=== PATIENT | female | born 2005 | race African-American/Black ===

== ENCOUNTER 2025-05-01 07:17 | Observation (INO) ==
--- NOTE | 2025-05-01 07:32 | Emergency Department Note ---
Impression & Plan Vaginal bleeding in , Anemia, Threatened in second trimester ED Provider Note CHIEF COMPLAINT: Vaginal bleeding in HISTORY OF PRESENTING ILLNESS: This (previous ) 20-year-old female patient who is approximately 18 weeks presents to the emergency department with her boyfriend for evaluation of mild abdominal cramping and vaginal bleeding. The symptoms started this morning. She denies any blood clots. The patient states that she still feels movement. The patient denies any fevers. She denies any chest pain or shortness of breath. She denies any nausea or vomiting. She follows up with [facility]. The patient was seen in the ER on 04/27/2025 for left-sided abdominal pain that radiated to her left mid back. The patient was started on Keflex for asymptomatic bacteriuria. Renal ultrasound showed a normal left kidney. Some prominence of the right renal collecting system and right ureteral jet not identified concerning for potential presence of a stone. However, the patient was not having any right sided pain. OB ultrasound showed a solitary intrauterine gestation with cardiac activity at 150 bpm. The abdominal pain resolved after starting the Keflex. She denies any urinary symptoms currently. REVIEW OF SYSTEMS: See HPI for pertinent positives and pertinent negatives. ALLERGIES: Latex MEDICATIONS: vitamin PAST MEDICAL HISTORY: Denies pertinent past medical or pertinent past surgical history PHYSICAL EXAM: VITALS: Vitals are noted on the nurse's note and reviewed by myself. GENERAL: Non toxic, in no acute distress, non-diaphoretic. SKIN: Capillary refill <2 sec. EYES: PERRLA. EOMI. Conjunctivae without injection, sclerae without icterus. NOSE: Patent without discharge. MOUTH: Mucous membranes moist. Uvula midline. Airway patent. NECK: Supple without nuchal rigidity. HEART: Regular rate and rhythm without murmurs gallops or rubs. LUNGS: Clear to auscultation bilaterally without wheezes, rales or rhonchi. No retractions or accessory muscle use. ABDOMEN: Positive bowel sounds x 4. Normal tympanic percussion. Soft, mild tenderness to palpation in the suprapubic area. No masses or hepatosplenomegaly. Ferrell sign negative. No CVA tenderness. No guarding, rigidity, or rebound tenderness. No focal RLQ or LLQ tenderness. PELVIC EXAM: Permission to perform the exam. Funeral Planner in the room for the exam. External genitalia normal. Vaginal canal with a copious amount of bright red blood initially. After this was soaked up with large Q-tips, there was no additional active bleeding. There were no blood clots. Cervical os might have slight dilation, but no significant dilation. Cervix without lesions. Bimanual exam deferred due to . NEURO: Patient was alert and oriented. No focal neurological deficits. DIFFERENTIAL DIAGNOSIS: Differential diagnosis includes miscarriage, threatened , ectopic , subchorionic hematoma, placenta previa, coagulopathy, hormonal imbalance, or others. ED COURSE AND MEDICAL DECISION MAKING: MEDICATIONS GIVEN: 1 L NSS bolus MONITOR: Continuous pickler helper: Order was placed for continuous pickler helper. Patient was placed on the pickler helper and continuous pulse ox. Patient was noted to be in normal sinus rhythm at an initial rate of 80 bpm per my interpretation. INTERPRETATION OF LABS: I interpreted the labs with full lab results as below in the lab section of this note. Laboratory results pertinent to the emergent complaint are discussed in the MDM section below. The patient was advised to follow up with their PCP and/or specialist(s) for further outpatient monitoring and management of any abnormal results. INTERPRETATION OF IMAGING: Imaging studies were interpreted by myself and read by radiology as per the imaging section of this note. The patient was advised to follow up with their PCP and/or specialist(s) for further outpatient management of any non-emergent abnormal findings. Obstetric ultrasound showed a single viable intrauterine gestation. heart rate normal at 129 bpm. The amount of amniotic fluid is within normal limits. There is normal movement. No placental abnormality identified. The cervix was not well assessed. No adnexal abnormality identified. No free fluid noted. CONSULTATIONS: Dr. Rodarte of [facility] MDM SUMMARY: I examined the patient. The patient is approximately 18 weeks . She started with vaginal bleeding and mild abdominal cramping this morning and she became concerned. She states that she is still feeling movement. heart tones by nursing staff were 153 at the time of arrival. Pelvic exam at the time of arrival showed a large amount of bright red blood in the vaginal canal, but after this was soaked up with Q-tips, no additional significant vaginal bleeding. No blood clots were present. There may be slight dilation of the cervix, but no significant openness of the cervix. The patient had also been seen in the ER 04/27/2025 with workup as above. An IV lock was placed and labs were drawn. The patient was given 1 L normal saline solution bolus. She declined any medication for pain or other symptoms while in the ER. White blood cell count normal at 8.65. The patient's hemoglobin is low at 11.4, but improved from 10.8 on 04/27/2025. Platelet count normal at 267. Coags normal. Glucose 101, but CMP otherwise normal. Magnesium normal. Urinalysis with 2+ protein and 1+ blood, but no evidence for UTI. Obstetric ultrasound showed a single viable intrauterine gestation. heart rate normal at 129 bpm. The amount of amniotic fluid is within normal limits. There is normal movement. No placental abnormality identified. The cervix was not well assessed. No adnexal abnormality identified. No free fluid noted. I spoke with Dr. Rodarte of [facility]. Dr. Rodarte stated that if the patient's bleeding stopped, the patient could be discharged home and follow-up with [facility] tomorrow for further outpatient management. However, it would be More concerning if the patient's bleeding continued. Her hemoglobin was stable and somewhat improved from her previous labs from 04/27/2025. The patient continued to have episodes of vaginal bleeding while in the emergency department. Some of the episodes were gushes of blood and some more more similar to period type bleeding. No clots were passed. No change in the patient's abdominal discomfort. She stated it was more like a crampy pain like she typically gets with her periods. I had a meaningful discussion about this patient with Dr. Monge who agrees with my assessment and the treatment plan. Since the patient was still bleeding, a repeat CBC was performed approximately 3 hours from the first. The patient's hemoglobin dropped from 11.4 down to 9.4. The patient was having continued bleeding and there is concern for possible worsening anemia if she continued bleeding. Therefore, I contacted Dr. Rodarte again who agreed to admit the patient for further monitoring of her bleeding and anemia. Please refer to his dictation for further details. The patient's care was transferred in stable condition. DIAGNOSIS: Vaginal bleeding in - threatened Anemia Past Med/Surg History Problem List (Updated 05/01/25 @ 15:37 by Eva Carney PA-C) Threatened in second trimester (Acute) Anemia (Acute) Vaginal bleeding in (Acute) Asymptomatic bacteriuria (Acute) Nausea & vomiting (Acute) Acute abdominal pain in left flank (Acute) No significant past surgical history No chronic diseases present Medical History No chronic diseases present Surgical History No significant past surgical history Social History Smoking Status: Never smoker Tobacco Type: E-cigarettes / Vaping Preferred Language: [place]i Feels Safe at Home: Yes Allergies Allergies Allergy/AdvReac Type Severity Reaction Status Date / Time latex Allergy Unknown Unverified 05/01/25 10:46 Home Meds Home Medications Medication Instructions Recorded Confirmed ferrous sulfate 324 mg (65 mg 324 mg PO DAILY 05/01/25 05/01/25 iron) tablet,delayed release vit no.95-ferrous 1 tab PO DAILY 05/01/25 05/01/25 fumarate 28 mg-folic acid 800 mcg tablet () Previous Rx's Medication Instructions Recorded cephalexin 500 mg capsule 500 mg PO TID 7 days #21 caps 04/27/25 Results & Data (ED) Vital Signs Vital Signs - 24 hr 05/01/25 07:18 05/01/25 07:18 05/01/25 08:00 Temperature 36.6 C Temperature Source Temporal Artery Scan Pulse Rate 90 85 Pulse Rate [Apical] Pulse Rate from SpO2 Sensor Pulse Rhythm Regular Respiratory Rate 18 16 18 Respiratory Effort / Characteristics Respiratory Depth Respiratory Pattern Blood Pressure 114/72 Blood Pressure [Right Arm] Blood Pressure Mean 86 Blood Pressure Mean [Right Arm] Blood Pressure Position [Right Arm] Pulse Oximetry 99 95 Oxygen Delivery Method Room Air Sepsis Recent Fever Within 48 Hours No Sepsis New/Unexplained Change in Mental Status N/A Sepsis Action Taken by Nursing No Action Required 05/01/25 08:00 05/01/25 08:05 05/01/25 08:05 Temperature Temperature Source Pulse Rate Pulse Rate [Apical] 85 Pulse Rate from SpO2 Sensor Pulse Rhythm Respiratory Rate 18 Respiratory Effort / Characteristics Non-Labored Spontaneous Respiratory Depth Normal Respiratory Pattern Regular Blood Pressure 102/72 102/72 Blood Pressure [Right Arm] 102/72 Blood Pressure Mean 79 79 Blood Pressure Mean [Right Arm] 82 Blood Pressure Position [Right Arm] Sitting Pulse Oximetry 95 Oxygen Delivery Method Room Air Sepsis Recent Fever Within 48 Hours Sepsis New/Unexplained Change in Mental Status Sepsis Action Taken by Nursing 05/01/25 08:36 05/01/25 08:39 05/01/25 08:42 Temperature Temperature Source Pulse Rate 82 81 80 Pulse Rate [Apical] Pulse Rate from SpO2 Sensor 81 80 Pulse Rhythm Respiratory Rate 22 21 Respiratory Effort / Characteristics Respiratory Depth Respiratory Pattern Blood Pressure Blood Pressure [Right Arm] Blood Pressure Mean Blood Pressure Mean [Right Arm] Blood Pressure Position [Right Arm] Pulse Oximetry 97 95 Oxygen Delivery Method Sepsis Recent Fever Within 48 Hours Sepsis New/Unexplained Change in Mental Status Sepsis Action Taken by Nursing 05/01/25 08:57 05/01/25 09:00 05/01/25 09:00 Temperature Temperature Source Pulse Rate 83 Pulse Rate [Apical] Pulse Rate from SpO2 Sensor 83 Pulse Rhythm Respiratory Rate 22 Respiratory Effort / Characteristics Respiratory Depth Respiratory Pattern Blood Pressure 102/68 102/68 Blood Pressure [Right Arm] Blood Pressure Mean 79 79 Blood Pressure Mean [Right Arm] Blood Pressure Position [Right Arm] Pulse Oximetry 100 Oxygen Delivery Method Sepsis Recent Fever Within 48 Hours Sepsis New/Unexplained Change in Mental Status Sepsis Action Taken by Nursing 05/01/25 09:00 05/01/25 09:00 05/01/25 09:00 Temperature Temperature Source Pulse Rate Pulse Rate [Apical] Pulse Rate from SpO2 Sensor Pulse Rhythm Respiratory Rate Respiratory Effort / Characteristics Respiratory Depth Respiratory Pattern Blood Pressure 102/68 102/68 102/68 Blood Pressure [Right Arm] Blood Pressure Mean 79 79 79 Blood Pressure Mean [Right Arm] Blood Pressure Position [Right Arm] Pulse Oximetry Oxygen Delivery Method Sepsis Recent Fever Within 48 Hours Sepsis New/Unexplained Change in Mental Status Sepsis Action Taken by Nursing 05/01/25 09:00 05/01/25 09:15 05/01/25 09:30 Temperature Temperature Source Pulse Rate 79 75 Pulse Rate [Apical] Pulse Rate from SpO2 Sensor 79 79 Pulse Rhythm Respiratory Rate 18 16 Respiratory Effort / Characteristics Respiratory Depth Respiratory Pattern Blood Pressure 113/75 Blood Pressure [Right Arm] Blood Pressure Mean 87 Blood Pressure Mean [Right Arm] Blood Pressure Position [Right Arm] Pulse Oximetry 98 100 Oxygen Delivery Method Sepsis Recent Fever Within 48 Hours Sepsis New/Unexplained Change in Mental Status Sepsis Action Taken by Nursing 05/01/25 09:30 05/01/25 09:30 05/01/25 09:45 Temperature Temperature Source Pulse Rate 77 89 Pulse Rate [Apical] Pulse Rate from SpO2 Sensor 77 Pulse Rhythm Respiratory Rate 20 20 Respiratory Effort / Characteristics Respiratory Depth Respiratory Pattern Blood Pressure 113/75 Blood Pressure [Right Arm] Blood Pressure Mean 87 Blood Pressure Mean [Right Arm] Blood Pressure Position [Right Arm] Pulse Oximetry 97 Oxygen Delivery Method Sepsis Recent Fever Within 48 Hours Sepsis New/Unexplained Change in Mental Status Sepsis Action Taken by Nursing 05/01/25 09:57 05/01/25 10:00 05/01/25 10:00 Temperature Temperature Source Pulse Rate 83 Pulse Rate [Apical] Pulse Rate from SpO2 Sensor Pulse Rhythm Respiratory Rate 18 Respiratory Effort / Characteristics Respiratory Depth Respiratory Pattern Blood Pressure 102/61 102/61 Blood Pressure [Right Arm] Blood Pressure Mean 76 76 Blood Pressure Mean [Right Arm] Blood Pressure Position [Right Arm] Pulse Oximetry Oxygen Delivery Method Sepsis Recent Fever Within 48 Hours Sepsis New/Unexplained Change in Mental Status Sepsis Action Taken by Nursing 05/01/25 10:00 05/01/25 10:03 05/01/25 10:15 Temperature Temperature Source Pulse Rate 81 79 Pulse Rate [Apical] Pulse Rate from SpO2 Sensor Pulse Rhythm Respiratory Rate 21 20 Respiratory Effort / Characteristics Respiratory Depth Respiratory Pattern Blood Pressure 102/61 Blood Pressure [Right Arm] Blood Pressure Mean 76 Blood Pressure Mean [Right Arm] Blood Pressure Position [Right Arm] Pulse Oximetry Oxygen Delivery Method Sepsis Recent Fever Within 48 Hours Sepsis New/Unexplained Change in Mental Status Sepsis Action Taken by Nursing 05/01/25 10:21 05/01/25 12:38 Temperature Temperature Source Pulse Rate 86 Pulse Rate [Apical] 65 Pulse Rate from SpO2 Sensor Pulse Rhythm Respiratory Rate 18 16 Respiratory Effort / Characteristics Respiratory Depth Respiratory Pattern Blood Pressure Blood Pressure [Right Arm] 120/64 Blood Pressure Mean Blood Pressure Mean [Right Arm] 82 Blood Pressure Position [Right Arm] Pulse Oximetry 95 Oxygen Delivery Method Room Air Sepsis Recent Fever Within 48 Hours Sepsis New/Unexplained Change in Mental Status Sepsis Action Taken by Nursing Laboratory Data 05/01/25 11:07 05/01/25 08:06 Lab Results 05/01/25 05/01/25 05/01/25 Range/Units 07:56 08:00 08:06 WBC 8.65 (4.8-10.8) K/ul RBC 4.08 L (4.20-5.40) M/uL Hgb 11.4 L (12.0-16.0) g/dl Hct 34.4 L (37.0-47.0) % MCV 84.3 (80.0-100.0) fL MCH 27.9 (25.0-34.0) pg MCHC 33.1 (32.0-36.0) g/dL RDW Std Deviation 40.2 (36.4-46.3) fL RDW Coeff of Danika 13.2 (11.5-14.5) % Plt Count 267 (130-400) K/uL MPV 10.4 (9.4-12.4) fL Immature Gran % (Auto) 0.3 % Neut % (Auto) 68.5 % Lymph % (Auto) 24.7 % [place] % (Auto) 4.5 % Eos % (Auto) 1.2 % Baso % (Auto) 0.8 % Neut # (Auto) 5.92 (1.40-6.50) K/uL Lymph # (Auto) 2.14 (1.20-3.40) K/uL [place] # (Auto) 0.39 (0.11-0.59) K/uL Eos # (Auto) 0.10 (0.00-0.50) K/uL Baso # (Auto) 0.07 (0.00-0.20) K/uL Immature Gran # (Auto) 0.03 (0.01-0.20) K/uL PT 10.1 (9.0-12.0) Seconds INR 1.0 (0.9-1.1) APTT 25 (21-31) Seconds PTT Ratio 0.9 Sodium 137 (136-145) mmol/L Potassium 3.8 (3.5-5.1) mmol/L Chloride 104 (98-107) mmol/L Carbon Dioxide 24 (21-32) mmol/L Anion Gap 9 (3-11) BUN 13 (6-23) mg/dl Creatinine 0.63 (0.6-1.2) mg/dl Est Cr Clr Drug Dosing Not Reportable eGFR 128.55 BUN/Creatinine Ratio 20.6 H (10-20) Glucose 101 H (70-99(Fasting)) mg/dl Calcium 9.2 (8.6-10.3) mg/dl Magnesium 1.8 (1.7-2.4) mg/dl Total Bilirubin 0.6 (0.2-1.0) mg/dl AST 16 (13-39) U/L ALT 11 (7-52) U/L Alkaline Phosphatase 37 (34-104) U/L Total Protein 7.4 (6.0-8.3) gm/dl Albumin 4.3 (3.4-5.0) gm/dl Globulin 3.1 (2.5-4.0) gm/dl Albumin/Globulin Ratio 1.4 (0.9-2) Urine Color Yellow Urine Appearance Clear (Clear) Urine pH 6.0 (4.5-7.5) Ur Specific [place] 1.019 (1.000-1.030) Urine Protein 2+ H (Negative) Urine Glucose (UA) Negative (Negative) Urine Ketones Negative (Negative) Urine Blood 1+ H (Negative) Urine Nitrite Negative (Negative) Urine Bilirubin Negative (Negative) Urine Urobilinogen Negative (Negative) Ur Leukocyte Esterase Negative (Negative) Urine WBC (Auto) 0-5 (0-5) /hpf Urine RBC (Auto) 6-10 H (0-2) /hpf U Hyaline Cast (Auto) 0-2 (0-2) /lpf U Epithel Cells (Auto) 0-2 (0-2) /hpf Urine Bacteria (Auto) None Seen (None Seen) Urine Comment Blood Type A Positive Antibody Screen NEGATIVE 05/01/25 Range/Units 11:07 WBC 9.96 (4.8-10.8) K/ul RBC 3.42 L (4.20-5.40) M/uL Hgb 9.4 L (12.0-16.0) g/dl Hct 28.7 L (37.0-47.0) % MCV 83.9 (80.0-100.0) fL MCH 27.5 (25.0-34.0) pg MCHC 32.8 (32.0-36.0) g/dL RDW Std Deviation 40.1 (36.4-46.3) fL RDW Coeff of Danika 13.2 (11.5-14.5) % Plt Count 168 (130-400) K/uL MPV 10.7 (9.4-12.4) fL Immature Gran % (Auto) % Neut % (Auto) % Lymph % (Auto) % [place] % (Auto) % Eos % (Auto) % Baso % (Auto) % Neut # (Auto) (1.40-6.50) K/uL Lymph # (Auto) (1.20-3.40) K/uL [place] # (Auto) (0.11-0.59) K/uL Eos # (Auto) (0.00-0.50) K/uL Baso # (Auto) (0.00-0.20) K/uL Immature Gran # (Auto) (0.01-0.20) K/uL PT (9.0-12.0) Seconds INR (0.9-1.1) APTT (21-31) Seconds PTT Ratio Sodium (136-145) mmol/L Potassium (3.5-5.1) mmol/L Chloride (98-107) mmol/L Carbon Dioxide (21-32) mmol/L Anion Gap (3-11) BUN (6-23) mg/dl Creatinine (0.6-1.2) mg/dl Est Cr Clr Drug Dosing eGFR BUN/Creatinine Ratio (10-20) Glucose (70-99(Fasting)) mg/dl Calcium (8.6-10.3) mg/dl Magnesium (1.7-2.4) mg/dl Total Bilirubin (0.2-1.0) mg/dl AST (13-39) U/L ALT (7-52) U/L Alkaline Phosphatase (34-104) U/L Total Protein (6.0-8.3) gm/dl Albumin (3.4-5.0) gm/dl Globulin (2.5-4.0) gm/dl Albumin/Globulin Ratio (0.9-2) Urine Color Urine Appearance (Clear) Urine pH (4.5-7.5) Ur Specific [place] (1.000-1.030) Urine Protein (Negative) Urine Glucose (UA) (Negative) Urine Ketones (Negative) Urine Blood (Negative) Urine Nitrite (Negative) Urine Bilirubin (Negative) Urine Urobilinogen (Negative) Ur Leukocyte Esterase (Negative) Urine WBC (Auto) (0-5) /hpf Urine RBC (Auto) (0-2) /hpf U Hyaline Cast (Auto) (0-2) /lpf U Epithel Cells (Auto) (0-2) /hpf Urine Bacteria (Auto) (None Seen) Urine Comment Blood Type Antibody Screen Administered Medications Discontinued Medications Sodium Chloride (Nss) 1,000 mls @ 999 mls/hr IV .[id number] ONE Stop: 05/01/25 08:44 Last Infusion: 05/01/25 09:40 Dose: Infused Documented By: Admin: 05/01/25 08:33 Dose: 999 mls/hr Documented By: ML Imaging Data Radiologist's Impression: Obstetrics Ultrasound 05/01/25 07:44 US OB limited CLINICAL HISTORY: 18 weeks preg, vaginal bleed, pelv cramp COMPARISON STUDY: OB ultrasound April 27, 2025. TECHNIQUE: Transabdominal sonography of the pelvis was performed. FINDINGS: Single viable intrauterine gestation is noted. heart rate is normal, measuring 129 bpm. Please note that a dedicated anatomical survey was not performed. Subjectively, the amount of amniotic fluid is within normal limits. There is normal movement. No placental abnormality was identified. The cervix was not well assessed on this exam. No adnexal abnormality was identified. Specifically, no free fluid was noted. IMPRESSION: 1. Single viable intrauterine gestation. 2. Normal heart rate. 3. No placental abnormality. 4. Cervix not well assessed on this exam. ACT 112: Negative or not required by law. Electronically signed by: Roberto Rodríguez M.D. 05/01/2025 8:44 AM Discharge Plan Visit Data Chief Complaint: Vaginal Discharge Stated Complaint: GUSH OF FLUID,PINK,MINOR CRAMPING ED Provider: Aniceto Monge ED Midlevel Provider: Eva Carney Discharge Problem: Vaginal bleeding in , Anemia, Threatened in second trimester Patient Disposition: Admitted As Inpatient Condition: Fair Discharge Instructions Interventions: ED Discharge Assessment Last Done: 05/01/25 14:24 Discharge Problem: Anemia Qualifiers: Anemia type: other cause
[2025-05-01 08:30] LABS: Hematocrit (blood only) 34.4 % (37.0-47.0); Hemoglobin 11.4 g/dl (12.0-16.0); Immature Granulocytes # (auto) 0.03 K/uL (0.01-0.20); Immature Granulocytes % (auto) 0.3 %; Mean Corpuscular Hemoglobin 27.9 pg (25.0-34.0); Mean Corpuscular Volume 84.3 fL (80.0-100.0); Platelet Count 267 K/uL (130-400); RDW Standard Deviation 40.2 fL (36.4-46.3); Red Blood Count 4.08 M/uL (4.20-5.40); White Blood Count 8.65 K/ul (4.8-10.8)
[2025-05-01] MEDS: SODIUM CHLORIDE 0.9% 1,000 ML IV ONE (08:33)
[2025-05-01 08:43] LABS: Appearance Urine Clear (Clear); Bacteria Urine Automated None Seen (None Seen); Cast Urine Automated 0-2 /lpf (0-2); Epithelial Cell Urine Auto 0-2 /hpf (0-2); Glucose Urine UA Negative (Negative); WBC Urine Automated 0-5 /hpf (0-5)
--- NOTE | 2025-05-01 08:45 | Ultrasound Report ---
US OB limited CLINICAL HISTORY: 18 weeks preg, vaginal bleed, pelv cramp COMPARISON STUDY: OB ultrasound April 27, 2025. TECHNIQUE: Transabdominal sonography of the pelvis was performed. FINDINGS: Single viable intrauterine gestation is noted. heart rate is normal, measuring 129 bp m. Please note that a dedicated anatomical survey was not performed. Subjectively, the amount o f amniotic fluid is within normal limits. There is normal movement. No placental abnormality wa s identified. The cervix was not well assessed on this exam. No adnexal abnormality was identified. S pecifically, no free fluid was noted. IMPRESSION: 1. Single viable intrauterine gestation. 2. Normal heart rate. 3. No placental abnormality. 4. Cervix not well assessed on this exam. ACT 112: Negative or not required by law. Electronically signed by: Roberto Rodríguez M.D. 05/01/2025 8:44 AM
[2025-05-01 09:03] LABS: Alanine Aminotransferase 11 U/L (7-52); Albumin Globulin Ratio 1.4 (0.9-2); Albumin Level 4.3 gm/dl (3.4-5.0); Alkaline Phosphatase 37 U/L (34-104); Anion Gap 9 (3-11); Bilirubin,Total 0.6 mg/dl (0.2-1.0); Blood Urea Nitrogen 13 mg/dl (6-23); Calcium 9.2 mg/dl (8.6-10.3); Carbon Dioxide 24 mmol/L (21-32); Chloride 104 mmol/L (98-107); Globulin 3.1 gm/dl (2.5-4.0); Glucose 101 mg/dl (70-99(Fasting)); Magnesium 1.8 mg/dl (1.7-2.4); Potassium 3.8 mmol/L (3.5-5.1); Sodium 137 mmol/L (136-145); Total Protein 7.4 gm/dl (6.0-8.3)
[2025-05-01 09:04] LABS: INR 1.0 (0.9-1.1); Partial Thromboplastin Time 25 Seconds (21-31); Prothrombin Time 10.1 Seconds (9.0-12.0)
[2025-05-01 11:19] LABS: Hematocrit (blood only) 28.7 % (37.0-47.0); Hemoglobin 9.4 g/dl (12.0-16.0); Mean Corpuscular Hemoglobin 27.5 pg (25.0-34.0); Mean Corpuscular Volume 83.9 fL (80.0-100.0); Platelet Count 168 K/uL (130-400); RDW Standard Deviation 40.1 fL (36.4-46.3); Red Blood Count 3.42 M/uL (4.20-5.40); White Blood Count 9.96 K/ul (4.8-10.8)
--- NOTE | 2025-05-01 15:20 | History & Physical Report ---
Date of Service May 01, 2025 Assessment & Plan (1) Threatened in second trimester: Plan: Observation Maintain IV access for possible transfusion Admission and Anticipated Discharge Date Admission Date: May 01, 2025 History of Present Illness Chief Complaint: Intra uterine 18 weeks gestation Vaginal bleeding Primary Care Provider: Odessa Fallon Patient is a 20-year-old 2 para 01 prior AB followed in the office for care delivery. General health is good. Seen in the ER approximately a week prior to this admission with pelvic discomfort was diagnosed as having a UTI placed on Keflex p.o. Patient's had a first trimester ultrasound for dating her due dates 10/02/2025. Patient has had no problems until present admission. She woke up early in the morning and had some cramps about [address] AM[address] Then on her way to work experience a gush of fluid with blood. Soaked through her underwear and actually soaked through her jeans. Was evaluated in the ER. Ultrasound showed normal amniotic fluid and good heart rate. Repeat hemoglobin hematocrit showed a drop in the emergency room. Examining physician requested admission. Hemoglobin in the ER was 9.4 Allergies Allergy/AdvReac Type Severity Reaction Status Date / Time latex Allergy Unknown Unverified 05/01/25 10:46 Home Medications Medication Instructions Recorded Confirmed Type cephalexin 500 mg capsule 500 mg PO TID 7 days #21 caps 04/27/25 05/01/25 Rx ferrous sulfate 324 mg (65 mg 324 mg PO DAILY 05/01/25 05/01/25 History iron) tablet,delayed release vit no.95-ferrous 1 tab PO DAILY 05/01/25 05/01/25 History fumarate 28 mg-folic acid 800 mcg tablet () Past Med/Surg History Problem List (Updated 05/01/25 @ 15:23 by Charles Rodarte MD) Threatened in second trimester Anemia (Acute) Vaginal bleeding in (Acute) Asymptomatic bacteriuria (Acute) Nausea & vomiting (Acute) Acute abdominal pain in left flank (Acute) No significant past surgical history No chronic diseases present Medical History No chronic diseases present Surgical History No significant past surgical history Social History Smoking Status: Never smoker Tobacco Type: E-cigarettes / Vaping Preferred Language: [place] Feels Safe at Home: Yes Physical Exam Physical Exam: Well-developed well-nourished 20-year-old black female alert oriented x 3 cooperative in no acute distress. Neck was supple trachea was midline there was no cervical adenopathy. No thyroid enlargement. Extraocular movements were intact. Oral hygiene was good. Lungs are clear to auscultation and percussion. No wheezes rales or rhonchi. Heart had a regular rhythm S1 and S2 were normal. There was no CVA tenderness. Abdomen revealed a fundal height consistent with a 18-week no tenderness. There was no calf tenderness. Vaginal bleeding at the time of exam was minimal. Results & Data Results & Data Vital Signs (Past 12 Hours) Vital Signs Temp Pulse Pulse Resp BP BP Pulse Ox 05/01/25 14:35 36.7 C 70 18 113/71 97 05/01/25 14:24 63 18 118/84 98 05/01/25 12:38 65 16 120/64 95 05/01/25 10:21 86 18 05/01/25 10:15 79 20 05/01/25 10:03 81 21 05/01/25 10:00 102/61 05/01/25 10:00 102/61 05/01/25 10:00 102/61 05/01/25 09:57 83 18 05/01/25 09:45 89 20 05/01/25 09:30 77 20 97 05/01/25 09:30 113/75 05/01/25 09:30 113/75 05/01/25 09:15 75 16 100 05/01/25 09:00 79 18 98 05/01/25 09:00 102/68 05/01/25 09:00 10205/01/25 09:00 102/68 05/01/25 09:00 102/68 05/01/25 09:00 102/05/01/25 08:57 83 22 100 05/01/25 08:42 80 21 95 05/01/25 08:39 81 22 97 05/01/25 08:36 82 05/01/25 08:05 102/72 05/01/25 08:05 102/05/01/25 08:00 85 18 102/72 95 05/01/25 08:00 85 18 95 05/01/25 07:18 16 05/01/25 07:18 36.6 C 90 18 114/72 99 O2 Del Method 05/01/25 14:35 Room Air 05/01/25 14:24 Room Air 05/01/25 12:38 Room Air 05/01/25 10:21 05/01/25 10:15 05/01/25 10:03 05/01/25 10:00 05/01/25 10:00 05/01/25 10:00 05/01/25 09:57 05/01/25 09:45 05/01/25 09:30 05/01/25 09:30 05/01/25 09:30 05/01/25 09:15 05/01/25 09:00 05/01/25 09:00 05/01/25 09:00 05/01/25 09:00 05/01/25 09:00 05/01/25 09:00 05/01/25 08:57 05/01/25 08:42 05/01/25 08:39 05/01/25 08:36 05/01/25 08:05 05/01/25 08:05 05/01/25 08:00 Room Air 05/01/25 08:00 Room Air 05/01/25 07:18 05/01/25 07:18 Laboratory Results Hemoglobin 9.4 Diagnostic Findings Ultrasound within normal limits showed good fluid and good heart rate
[2025-05-01] MEDS ORDERED: CALCIUM CARBONATE 500 MG CHEWABLE TAB PO PRN (15:25)
[2025-05-01] MEDS ORDERED: ONDANSETRON INJ 2 MG/ML 2 ML VIAL IV PRN (15:25)
[2025-05-02 06:59] LABS: Hematocrit (blood only) 28.9 % (37.0-47.0); Hemoglobin 9.4 g/dl (12.0-16.0)
--- NOTE | 2025-05-02 09:16 | Labor Progress Brief Note ---
Date of Service May 02, 2025 Subjective Reason For Note: Routine Evaluation (feels fine. no active bleeding. passing gas and tolerating diet,) Review of Systems All systems reviewed & are unremarkable except as noted in HPI & below Assessment & Plan (1) Threatened in second trimester: Plan: follow up in office next week Admission and Anticipated Discharge Date Admission Date: May 01, 2025 Physical Exam Constitutional: WD/WN, vitals as above Gastrointestinal (Abdomen): Inspection/Auscultation: abdomen normal to inspection abdomen soft and non-tender Musculoskeletal: Extremities: extremities normal to inspection Results & Data Vital Signs (Past 12 Hours) Vital Signs Temp Pulse Resp BP Pulse Ox O2 Del Method 05/02/25 04:00 36.8 C 95 H 16 115/76 98 Room Air Laboratory Results 05/01/25 05/01/25 05/01/25 07:56 08:00 08:06 WBC 8.65 RBC 4.08 L Hgb 11.4 L Hct 34.4 L MCV 84.3 MCH 27.9 MCHC 33.1 RDW Std Deviation 40.2 RDW Coeff of Danika 13.2 Plt Count 267 MPV 10.4 Immature Gran % (Auto) 0.3 Neut % (Auto) 68.5 Lymph % (Auto) 24.7 [place] % (Auto) 4.5 Eos % (Auto) 1.2 Baso % (Auto) 0.8 Neut # (Auto) 5.92 Lymph # (Auto) 2.14 [place] # (Auto) 0.39 Eos # (Auto) 0.10 Baso # (Auto) 0.07 Immature Gran # (Auto) 0.03 PT 10.1 INR 1.0 APTT 25 PTT Ratio 0.9 Sodium 137 Potassium 3.8 Chloride 104 Carbon Dioxide 24 Anion Gap 9 BUN 13 Creatinine 0.63 Est Cr Clr Drug Dosing Not Reportable eGFR 128.55 BUN/Creatinine Ratio 20.6 H Glucose 101 H Calcium 9.2 Magnesium 1.8 Total Bilirubin 0.6 AST 16 ALT 11 Alkaline Phosphatase 37 Total Protein 7.4 Albumin 4.3 Globulin 3.1 Albumin/Globulin Ratio 1.4 Urine Color Yellow Urine Appearance Clear Urine pH 6.0 Ur Specific [place] 1.019 Urine Protein 2+ H Urine Glucose (UA) Negative Urine Ketones Negative Urine Blood 1+ H Urine Nitrite Negative Urine Bilirubin Negative Urine Urobilinogen Negative Ur Leukocyte Esterase Negative Urine WBC (Auto) 0-5 Urine RBC (Auto) 6-10 H U Hyaline Cast (Auto) 0-2 U Epithel Cells (Auto) 0-2 Urine Bacteria (Auto) None Seen Urine Comment Blood Type A Positive Antibody Screen NEGATIVE 05/01/25 05/02/25 11:07 06:01 WBC 9.96 RBC 3.42 L Hgb 9.4 L 9.4 L Hct 28.7 L 28.9 L MCV 83.9 MCH 27.5 MCHC 32.8 RDW Std Deviation 40.1 RDW Coeff of [place] 13.2 Plt Count 168 MPV 10.7 Immature Gran % (Auto) Neut % (Auto) Lymph % (Auto) [place] % (Auto) Eos % (Auto) Baso % (Auto) Neut # (Auto) Lymph # (Auto) [place] # (Auto) Eos # (Auto) Baso # (Auto) Immature Gran # (Auto) PT INR APTT PTT Ratio Sodium Potassium Chloride Carbon Dioxide Anion Gap BUN Creatinine Est Cr Clr Drug Dosing eGFR BUN/Creatinine Ratio Glucose Calcium Magnesium Total Bilirubin AST ALT Alkaline Phosphatase Total Protein Albumin Globulin Albumin/Globulin Ratio Urine Color Urine Appearance Urine pH Ur Specific [place] Urine Protein Urine Glucose (UA) Urine Ketones Urine Blood Urine Nitrite Urine Bilirubin Urine Urobilinogen Ur Leukocyte Esterase Urine WBC (Auto) Urine RBC (Auto) U Hyaline Cast (Auto) U Epithel Cells (Auto) Urine Bacteria (Auto) Urine Comment Blood Type Antibody Screen
[2025-05-02 10:42] VITALS: BP 105/68; RESP 18; TEMP 99; O2SAT 100
--- NOTE | 2025-05-02 10:42 | Ultrasound Report ---
US OB limited CLINICAL HISTORY: ultrasound in AM to check fluid cervical length COMPARISON STUDY: 05/01/2025 FINDINGS: Single intrauterine gestation is present with movement during the exam. heart r ate is 152 bpm. MVP is 6 cm. Placenta is anterior. Cervix measures 3.8 cm in length. IMPRESSION: Cervix measures 3.8 cm in length. ACT 112: Negative or not required by law. Electronically signed by: Eran Tijerina M.D. 05/02/2025 10:41 AM
[2025-05-02 11:20] VITALS: PULSE 95
--- NOTE | 2025-05-08 09:40 | Discharge Summary ---
Date of Service May 08, 2025 Admission HPI Per Admitting Provider Patient is a 20-year-old 2 para 01 prior AB followed in the office for care delivery. General health is good. Seen in the ER approximately a week prior to this admission with pelvic discomfort was diagnosed as having a UTI placed on Keflex p.o. Patient's had a first trimester ultrasound for dating her due dates 10/02/2025. Patient has had no problems until present admission. She woke up early in the morning and had some cramps about 7 AM. Then on her way to work experience a gush of fluid with blood. Soaked through her underwear and actually soaked through her jeans. Was evaluated in the ER. Ultrasound showed normal amniotic fluid and good heart rate. Repeat hemoglobin hematocrit showed a drop in the emergency room. Examining physician requested admission. Hemoglobin in the ER was 9.4 Discharge Data Consultations 05/01/25 13:25 ED Decision to Admit Stat
== END 2025-05-02 11:45 | disposition home or self-care (01) ==
LOC: 4E1 07:17 → ED 07:17 → 4E1 14:24